=== PATIENT | male | born 1970 | race Caucasian/White ===

== ENCOUNTER 2021-09-30 21:07 | Emergency (ER) | payer MEDICARE ==
[~2021-09-30] VITALS: Ht 182.8 cm; Wt 107.5 kg
[2021-09-30] MEDS ORDERED: ASPIRIN 81 MG CHEW (CHILDREN'S ASA) PO ONE (21:15)
--- NOTE | 2021-09-30 21:42 | Diagnostic Imaging Report ---
INDICATION: Chest pain. EXAMINATION: Chest, 09/30/2021. COMPARISON: None. FINDINGS: There is left-sided pacemaker with two catheters on the right extending into the distal SVC. Heart and pulmonary vasculature are normal. No pneumothorax. No effusion or infiltrate. IMPRESSION: No acute cardiopulmonary process. Dictated by: Dictated on workstation # [id number]
[2021-09-30] MEDS ORDERED: morphine INJ 10 MG/ML 1ML (SYR OR VIAL) IVP STA ×2 (22:02→23:21)
[2021-09-30 22:05] LABS: BASOPHILS # (AUTO) 0.1 10^3/uL (0.0-0.1); BASOPHILS % (AUTO) 1 % (0-10); EOSINOPHILS # (AUTO) 0.2 10^3/uL (0.0-0.3); EOSINOPHILS % (AUTO) 2 % (0-10); HEMATOCRIT 42 % (40-54); HEMOGLOBIN 14.3 g/dL (13.3-17.7); LYMPHOCYTES # (AUTO) 3.2 10^3/uL (1.0-4.0); LYMPHOCYTES % (AUTO) 36 % (12-44); MEAN CORPUSCULAR HEMOGLOBIN 28 pg (25-34); MEAN CORPUSCULAR HGB CONC 34 g/dL (32-36); MEAN CORPUSCULAR VOLUME 81 fL (80-99); MEAN PLATELET VOLUME 9.8 fL (9.0-12.2); MONOCYTES % (AUTO) 11 % (0-12); NEUTROPHILS # (AUTO) 4.4 10^3/uL (1.8-7.8); NEUTROPHILS % (AUTO) 49 % (42-75); PLATELET COUNT 253 10^3/uL (130-400)
[2021-09-30] MEDS ORDERED: PROMETHAZINE INJ 25 MG/ML (PHENERGAN) AMP IM ONE (22:15)
[2021-09-30] MEDS ORDERED: PROMETHAZINE INJ 25 MG/ML (PHENERGAN) AMP IVP ONE (22:15)
--- NOTE | 2021-09-30 22:18 | ED Chest Pain ---
General Chief Complaint: Chest Pain Stated Complaint: CP,NAUSEA,SOB Source: patient Exam Limitations: no limitations History of Present Illness Date Seen by Provider: Sep 30, 2021 Time Seen by Provider: 21:13 Initial Comments This 50-year-old gentleman with extensive coronary artery disease and cardiac history presents to the emergency room by private vehicle with sudden onset of chest pain, nausea, and vomiting which he states is reminiscent of prior episodes of acute coronary syndrome. He lives in [facility] and was traveling through the area visiting a friend when the pain started. He typically receives his cardiac care at [facility] and identifies Dr. Sissy Lancaster as his primary preschool assistant principal. He has coronary artery disease with history of stents x15 and CABG x2 vessels. He reports his last ejection fraction was 19. He takes Brilinta and Eliquis. He is up-to-date on those doses. Pain is rated as 8/10 and is described as a tightness across his upper chest and radiating into the back. He has an implanted ICD as well as 2 ports in the right upper chest that are used for Lipopheresis treatments because of his severe hyperlipidemia. Vital signs are stable at this time. He attempted to 3 nitroglycerin from his own supply without any improvement in his pain. Allergies and Home Medications Allergies Coded Allergies: No Known Drug Allergies (Unverified , 09/30/21) Patient Home Medication List Home Medication List Reviewed: Yes Bumetanide (Bumetanide) 2 Mg Tablet, (Reported) Entered as Reported by: ROBIN RAMIREZ on 10/01/2141 Last Action: New Order Butorphanol Tartrate (Butorphanol Tartrate) 10 Mg/Ml [place], (Reported) Entered as Reported by: ROBIN RAMIREZ on 10/01/2141 Last Action: New Order Carvedilol (Carvedilol) 12.5 Mg Tablet, (Reported) Entered as Reported by: ROBIN RAMIREZ on 10/01/2141 Last Action: New Order Metolazone (Metolazone) 2.5 Mg Tablet, (Reported) Entered as Reported by: ROBNI RAMIREZ on 10/01/2141 Last Action: New Order Sacubitril/Valsartan (Entresto 24 mg-26 mg Tablet) 24 Mg-26 Mg Tablet, (Reported) Entered as Reported by: ROBIN RAMIREZ on 10/01/21 0042 Last Action: New Order Review of Systems Review of Systems Constitutional: diaphoresis EENTM: No Symptoms Reported Respiratory: No Symptoms Reported Cardiovascular: See HPI Gastrointestinal: See HPI Genitourinary: No Symptoms Reported Musculoskeletal: no symptoms reported Skin: no symptoms reported Psychiatric/Neurological: No Symptoms Reported Endocrine: No Symptoms Reported Hematologic/Lymphatic: No Symptoms Reported Past Oncykxb-Cjvaii-Ojbxil Hx Patient Social History Tobacco Use?: No Use of E-Cig and/or Vaping dev: No Substance use?: No Alcohol Use?: No Past Medical History Surgeries: Yes (Testicular torsion, hypospadias, CardioMEMS PA pressure monitor) CABG, Coronary Stent, Defibrillator, Gallbladder Respiratory: No Cardiac: Yes (Diastolic and systolic heart failure) Coronary Artery Disease, High Cholesterol (Severe, requiring lipopheresis), Hypertension Neurological: Yes Stroke (With thrombolytic therapy) Genitourinary: No Gastrointestinal: No Musculoskeletal: No Endocrine: No HEENT: No Cancer: No PTSD (Combat related) Blood Disorders: Yes (Factor V Leiden) Physical Exam Vital Signs Capillary Refill : Height, Weight, BMI Height: '" Weight: lbs. oz. kg; BMI Method: General Appearance: No Apparent Distress, WD/WN HEENT: PERRL/EOMI, Normal ENT Inspection, Pharynx Normal Neck: Normal Inspection; No JVD Respiratory: Lungs Clear, Normal Breath Sounds, No Accessory Muscle Use, No Respiratory Distress Cardiovascular: Regular Rate, Rhythm, No Edema, No Murmur, Normal Peripheral Pulses Gastrointestinal: Non Tender, Soft; No Distended Extremity: Normal Inspection, No Pedal Edema Neurologic/Psychiatric: Alert, Oriented x3, No Motor/Sensory Deficits, Normal Mood/Affect, oncology rep specialist II-XII Norm as Tested Skin: Normal Color, Warm/Dry Progress/Results/Core Measures Results/Orders Lab Results Laboratory Tests Test 09/30/21 21:50 09/30/21 23:50 Range/Units White Blood Count 9.0 4.3-11.0 10^3/uL Red Blood Count 5.18 4.30-5.52 10^6/uL Hemoglobin 14.3 13.3-17.7 g/dL Hematocrit 42 40-54 % Mean Corpuscular Volume 81 80-99 fL Mean Corpuscular Hemoglobin 28 25-34 pg Mean Corpuscular Hemoglobin Concent 34 32-36 g/dL Red Cell Distribution Width 14.2 10.0-14.5 % Platelet Count 253 130-400 10^3/uL Mean Platelet Volume 9.8 9.0-12.2 fL Immature Granulocyte % (Auto) 1 % Neutrophils (%) (Auto) 49 42-75 % Lymphocytes (%) (Auto) 36 12-44 % Monocytes (%) (Auto) 11 0-12 % Eosinophils (%) (Auto) 2 0-10 % Basophils (%) (Auto) 1 0-10 % Neutrophils # (Auto) 4.4 1.8-7.8 10^3/uL Lymphocytes # (Auto) 3.2 1.0-4.0 10^3/uL Monocytes # (Auto) 1.0 0.0-1.0 10^3/uL Eosinophils # (Auto) 0.2 0.0-0.3 10^3/uL Basophils # (Auto) 0.1 0.0-0.1 10^3/uL Immature Granulocyte # (Auto) 0.1 0.0-0.1 10^3/uL Neutrophils % (Manual) 51 % Lymphocytes % (Manual) 25 % Monocytes % (Manual) 10 % Eosinophils % (Manual) 3 % Basophils % (Manual) % Band Neutrophils 1 % Atypical Lymphocytes 10 % Platelet Estimate NORMAL Blood Morphology Comment NORMAL Prothrombin Time 12.9 12.2-14.7 SEC INR Comment 0.9 0.8-1.4 Activated Partial Thromboplast Time 26 24-35 SEC Sodium Level 133 L 135-145 MMOL/L Potassium Level 4.1 3.6-5.0 MMOL/L Chloride Level 96 L 98-107 MMOL/L Carbon Dioxide Level 24 21-32 MMOL/L Anion Gap 13 5-14 MMOL/L Blood Urea Nitrogen 16 7-18 MG/DL Creatinine 1.18 0.60-1.30 MG/DL Estimat Glomerular Filtration Rate 75 BUN/Creatinine Ratio 14 Glucose Level 352 H 70-105 MG/DL Calcium Level 9.4 8.5-10.1 MG/DL Corrected Calcium 9.2 8.5-10.1 MG/DL Magnesium Level 1.9 1.6-2.4 MG/DL Total Bilirubin 0.3 0.1-1.0 MG/DL Aspartate Amino Transf (AST/SGOT) 17 5-34 U/L Alanine Aminotransferase (ALT/SGPT) 23 0-55 U/L Alkaline Phosphatase 147 H 40-136 U/L Myoglobin 33.6 10.0-92.0 NG/ML Troponin I < 0.30 < 0.30 <0.30 NG/ML Total Protein 7.0 6.4-8.2 GM/DL Albumin 4.3 3.2-4.5 GM/DL My Orders Orders - NOREEN HOUSTON MD Cbc With Automated Diff (09/30/21 21:13) Magnesium (09/30/21 21:13) Chest 1 View Ap/Pa Only (09/30/21:13) Ekg Tracing (09/30/21:) Comprehensive Metabolic Panel (09/30/21:) Myoglobin Serum (09/30/21:13) Protime With Inr (09/30/21:13) Partial Thromboplastin Time (09/30/21:13) O2 (09/30/21:13) Monitor-Rhythm Ecg Trace Only (09/30/21 21:13) Lipid Panel (10/01/21 06:00) Aspirin Chewable Tablet (Baby Aspirin Ch (09/30/21 21:15) Ed Iv/Invasive Line Start (09/30/21:13) Troponin I Fs (09/30/21 21:13) Morphine Injection (Morphine Injection (09/30/21 22:02) Promethazine Injection (Phenergan Injec (09/30/21 22:15) Manual Differential (09/30/21 21:50) Morphine Injection (Morphine Injection (09/30/21 23:21) Troponin I [place] (09/30/21 23:50) Ekg Tracing (09/30/21 23:25) Lorazepam Tablet (Ativan Tablet) (10/01/21 01:15) Diphenhydramine Injection (Benadryl Inje (10/01/21 01:15) Lorazepam Tablet (Ativan Tablet) (10/01/21 01:23) Medications Given in ED Current Medications Medications Dose Ordered Sig/Meagan Route Start Time Stop Time Status Last Admin Dose Admin Aspirin 324 mg ONCE ONCE PO 09/30/21 21:15 09/30/21 21:16 DC 09/30/21 21:58 324 MG Diphenhydramine HCl 12.5 mg ONCE ONCE IVP 10/01/21 01:15 10/01/21 01:17 DC 10/01/21 01:25 12.5 MG Promethazine HCl 25 mg ONCE ONCE IM 09/30/21 22:15 09/30/21 22:16 DC 09/30/21 22:14 25 MG Progress Progress Note #1: Time: 22:20 Progress Note Patient had extremely poor vascular access. I tried accessing with ultrasound assistance on each of the arms without success. Nursing staff was also having much difficulty. Eventually a 22-gauge IV was established in the right calf. He has 2 ports in the right upper chest but they are [employer] PowerPort's which he states should not be accessed without special training. We did not attempt to access them. Morphine was given for pain. Aspirin 324 mg chewed was administered. Labs are pending at this time. I contacted [facility] at about 22:15 to start the transfer process if they are able to accommodate his case. Progress Note #2: Time: 00:25 Progress Note Initial cardiopulmonary work-up was unremarkable. Nausea was treated with Phenergan by IM injection. Patient has very difficult vascular access and he has a small IV in the right calf. We did not want to compromise this IV access by using IV Phenergan. Pain has been treated with morphine x2. He states his pain is now 4/10. Transfer has been accepted to [facility] and we are awaiting availability of EMS transport. Patient is stable at this time. Repeat troponin at 2 hours is pending. EKG was repeated and demonstrated no ischemic changes. Progress Note #3: Time: 01:33 Progress Note EMS is onsite to transport patient. He was given Benadryl 12.5 mg IV and Ativan 1 mg orally to help with anxiety for transport. He has PTSD, especially in confined spaces necessitating these treatments for anxiety. Repeat troponin was negative. Patient's pain remained controlled at 4/10 after his treatments with morphine. Initial ECG Impression Date: Sep 30, 2021 Initial ECG Impression Time: 21:19 Initial ECG Rate: 114 Initial ECG Rhythm: S.Tach Comment Sinus tachycardia with no overt ST elevation or depression to suggest ischemia. No prior EKG for comparison. Right axis deviation. EKG : EKG Time: 23:58 Rate: 100 Rhythm: S.Tach Comment Sinus tachycardia with no ST elevation or depression. Left axis deviation. No significant abnormal intervals. No major change from prior. Diagnostic Imaging Diagonstic Imaging: Xray Plain Films/CT/US/NM/MRI: chest Comments Chest x-ray viewed by me and report reviewed. See report below: NAME: ERIN BARGER MED REC#: [id number] PT STATUS: REG ER : 1970 PHYSICIAN: NOREEN HOUSTON MD ADMIT DATE: 09/30/21/ER FS Draft Date of Exam:09/30/21 CHEST 1 VIEW AP/PA ONLY INDICATION: Chest pain. EXAMINATION: Chest, 09/30/2021. COMPARISON: None. FINDINGS: There is left-sided pacemaker with two catheters on the right extending into the distal SVC. Heart and pulmonary vasculature are normal. No pneumothorax. No effusion or infiltrate. IMPRESSION: No acute cardiopulmonary process. Dictated on workstation # [id number] Dict: 09/30/212137 Trans: 09/30/212140 [facility] [id number] Interpreted by: MARTINE HUGHES MD Departure Impression Primary Impression: Chest pain Qualified Codes: R07.9 - Chest pain, unspecified Additional Impressions: Coronary artery disease Qualified Codes: I25.10 - Atherosclerotic heart disease of [place] coronary artery without angina pectoris PTSD (post-traumatic stress disorder) Disposition: XFER SHT-TRM HOSP Condition: Stable Transfer Transfer Reason: Exceeds level of care Time Spoke to Accepting Phy: 22:50 Transfer Progress Notes Transfer to [facility] arranged by Transfer Triage Coordinator and accepted to Dr. Olivia Verma. Transfer Time: 01:32 Transfer Facility: [facility] Method of Transfer: EMS Departure-Patient Inst. Referrals: NO,LOCAL PHYSICIAN (PCP/Family) Primary Care Physician NOREEN HOUSTON MD Sep 30, 2021 22:18
[2021-09-30 22:21] LABS: BAND NEUTROPHILS 1 %; LYMPHOCYTES % (MANUAL) 25 %; NEUTROPHILS % (MANUAL) 51 %
[2021-09-30 22:22] LABS: ATYPICAL LYMPHOCYTES 10 %; EOSINOPHILS % (MANUAL) 3 %; INR 0.9 (0.8-1.4); MONOCYTES % (MANUAL) 10 %; PLATELET ESTIMATE NORMAL; PROTHROMBIN TIME PATIENT 12.9 SEC (12.2-14.7); RBC MORPH NORMAL
[2021-09-30 22:26] LABS: POTASSIUM 4.1 MMOL/L (3.6-5.0)
[2021-09-30 22:27] LABS: ALBUMIN 4.3 GM/DL (3.2-4.5); BILIRUBIN,TOTAL 0.3 MG/DL (0.1-1.0); CALCIUM 9.4 MG/DL (8.5-10.1); CREATININE SERUM 1.18 MG/DL (0.60-1.30); MAGNESIUM 1.9 MG/DL (1.6-2.4)
[2021-10-01] MEDS ORDERED: METO2.5T (00:42)
[2021-10-01] MEDS ORDERED: SACU1TAB2 (00:42)
[2021-10-01] MEDS ORDERED: BUME2TAB7 (00:42)
[2021-10-01] MEDS ORDERED: CARV12.53 (00:42)
[2021-10-01] MEDS ORDERED: BTR10SP2 (00:42)
[2021-10-01] MEDS ORDERED: LORazepam 0.5 MG (ATIVAN) TABLET PO STA (01:15)
[2021-10-01] MEDS ORDERED: diphenhydrAMINE 50 MG/ML INJ (BENADRYL) IVP ONE (01:15)
[2021-10-01] MEDS ORDERED: LORazepam 1 MG (ATIVAN) TAB ONE (01:23)
[2021-10-01 01:40] VITALS: BP 154/97
== END 2021-10-01 01:40 | disposition short-term general hospital (02) ==
LOC: ER FS 21:09
DX: I25.10 Atherosclerotic heart disease of native coronary artery without angina pectoris (principal); F43.10 Post-traumatic stress disorder, unspecified; R00.0 Tachycardia, unspecified; E78.5 Hyperlipidemia, unspecified; Z79.899 Other long term (current) drug therapy
CPT/HCPCS: 36415; 71045; 80053; 83735; 83874; 84484; 85007; 85027; 85610; 85730; 93005; 93041